=== PATIENT | male | born 1960 | race Caucasian/White ===

== ENCOUNTER → 2016-07-11 | Day surgery (SDC) | payer BC ==
[~2016-07-11] MED LIST: BACTRIM 400-801 TA1 PO; FLEXERIL PO; HYDROCODON-ACE1 EAC9 PO; KEFLEX500 M1 PO; KETOPROFEN PO; LORTAB 2.5/5001 TAB PO; MULTI VITAMIN1 EACH PO; NEXIUM PO; NO MEDICATIONS; PERCOCET5/325 PO; SILVADENE TOP
--- NOTE | ~2016-07-11 | OR ---
Unit #: [id number] #: [id number] Patient: BAN VANN [id number] [address] [place], [place] [address] [id number] O MR#: [id number] NAME: BAN VANN ROOM: Date of Procedure: 07/11/2016 Admission Date: 07/11/2016 Surgeon: Arline Guerrero M.D. : 1960 Attending Physician: Arline Guerrero M.D. Referring Physician: Arline Guerrero M.D. Primary Care Physician: Rebeca Conroy M.D. OPERATIVE REPORT PREOPERATIVE DIAGNOSIS Painful hardware, left hand. POSTOPERATIVE DIAGNOSIS Painful hardware, left hand. PROCEDURE PERFORMED Removal of hardware, left hand. HISTORY AND FINDINGS The patient is a 55-year-old male, sustained injury to his left hand and underwent pinning of his fifth metacarpal and this fracture progressed to heal, but continues to have residual pain as he is having some residual symptoms, and was advised removal of the metacarpal pin. Risks of anesthesia and complications were reviewed including infection, neurovascular injury, loss of fixation, and also possibility of not being able to remove the hardware have been discussed. He voices understanding and wishes to proceed. DESCRIPTION OF PROCEDURE After induction of general anesthesia, a time-out was called, and operative site was confirmed. An Esmarch was applied, then a skin incision over the previous scar approximately 1.5 cm long was made. Incision deepened down by sharp dissection carried down by palpation to the metacarpal pin site and the end of the metacarpal pin was identified and using a needle rivas it was extracted. Wound was irrigated and about 3 mL of 0.25% Marcaine was instilled. The wound was closed with 4-0 nylon. Sterile compression dressing was applied. Esmarch was taken down. The patient tolerated the procedure well and was transferred to the recovery room in satisfactory condition. POSTOPERATIVE INSTRUCTIONS 1. Ice packs to the left hand and range of motion to the fingers. 2. [place] 7.5 mg p.o. q.6 hours p.r.n. 3. He was given a followup appointment to return to my office in 1 week. If any problems to contact me. Dictated by... José Miguel Mendez/anthony Unit #: [id number] #: [id number] Patient: BAN VANN TD: 07/12/2016 02:29 JOB #: [id number] OPERATIVE REPORT X Arline Guerrero MD PROCEDURE OPERATIVE NOTE
== END | disposition home or self-care (01) ==
LOC: CSUR 06:57
DX: T84.84XA Pain due to internal orthopedic prosthetic devices, implants and grafts, initial encounter (principal); F17.210 Nicotine dependence, cigarettes, uncomplicated; E11.9 Type 2 diabetes mellitus without complications; Z90.49 Acquired absence of other specified parts of digestive tract; Z88.5 Allergy status to narcotic agent
CPT/HCPCS: 82947; J0690; J2250; J2405; J3010